=== PATIENT | female | born 1940 | race Caucasian/White ===

== ENCOUNTER 2020-05-03 14:43 | Emergency (ER) | payer MEDICARE, SELFPAY ==
[2020-05-03 14:48] VITALS: BP 245/105; PULSE 77; RESP 15; TEMP 36.3; O2SAT 96; BMI 20.3
[2020-05-03 14:52] VITALS: PULSE 74; O2SAT 99
[2020-05-03 14:53] VITALS: BP 245/105; PULSE 76; O2SAT 98
--- NOTE | 2020-05-03 14:58 | DI.RAD.S_ITS ---
PROCEDURE: XR SHOULDER RT MIN 2V INDICATIONS: Postreduction of dislocation TECHNIQUE: 3 views of the shoulder were acquired. COMPARISON: None. FINDINGS: Bones: There is a Hill-Sachs deformity of the humeral head. Mild irregularity in the inferior glenoid. No suspicious bony lesions. Visualized ribs appear intact. Soft tissues: No suspicious soft tissue calcifications. IMPRESSION: 1. Left shoulder dislocation is reduced. 2. A Hill-Sachs deformity of the humeral head. 3. Inferior glenoid irregularity, suggesting labral injury of uncertain chronicity. Dictated by: Jus Yi M.D. on 05/03/2020 at 15:26 Approved by: Jus Yi M.D. on 05/03/2020 at 15:28
[2020-05-03 14:59] VITALS: BP 213/94; PULSE 78; O2SAT 98
[2020-05-03 15:00] VITALS: PULSE 79; O2SAT 98
--- NOTE | 2020-05-03 15:00 | ED.FALL ---
HPI - Fall General Chief Complaint: Fall Stated Complaint: fall yesterday, right arm pain,Chiro wont touch it Time Seen by Provider: 05/03/20 14:54 Source: patient Mode of arrival: Ambulatory Limitations: no limitations History of Present Illness HPI Narrative: Patient is an 79-year-old female who states that yesterday she was out doing some gardening when she tripped over a flower pot landing on her right shoulder. She did not hit her head. There was no loss of consciousness. She has had pain in her right arm since that time. She denies any elbow or wrist tenderness. No neck pain. Has not tried anything for symptoms prior to arrival. Related Data Allergies Allergy/AdvReac Type Severity Reaction Status Date / Time No Known Drug Allergies Allergy Verified 05/03/20 14:51 Review of Systems Constitutional Constitutional: Denies fever(s) and Denies headache(s) ENT Ears, Nose, Mouth, and Throat: Denies headache(s) Cardiovascular Cardiovascular: Denies chest pain and Denies dyspnea Respiratory Respiratory: Denies dyspnea Gastrointestinal Gastrointestinal: Denies abdominal pain, Denies nausea and Denies vomiting Musculoskeletal Musculoskeletal: Denies tingling Comments: Right shoulder pain Integumentary/Breasts Skin/Breast: Denies rash Neurologic Neurologic: Denies behavioral changes, Denies headache(s) and Denies tingling Psychiatric Psychiatric: Denies behavioral changes Hematologic/Lymphatic On Anticoagulants: No Allergic/Immunologic Allergic/Immunologic: Denies urticaria Patient History Surgical History No pertinent past surgical history Social History Smoking Status: Unknown if ever smoked Smoking Status: Unknown if ever smoked alcohol intake frequency: holidays/special occasions only Substance Use Type: does not use Exam Initial Vital Signs Initial Vital Signs: Vital Signs Temperature 97.4 F L 05/03/20 14:48 Pulse Rate 77 05/03/20 14:48 Respiratory Rate 15 05/03/20 14:48 Blood Pressure 245/105 H 05/03/20 14:48 Pulse Oximetry 96 05/03/20 14:48 Const General: cooperative and comfortable Limitations: mental status not altered HENMT Head: normal to inspection and normocephalic Resp Effort & Inspection: normal respiratory effort Cardio Rate: regular rate Pulses: radial pulses present on the right Skin Lesions: no lesions Rashes: no rashes Neuro General: patient alert and patient awake Speech: speech normal Extrem Other: Right wrist and right elbow is unremarkable. Patient unable to touch her left shoulder with her right hand. The does appear to be a abnormality to the right shoulder. No fevers. Psych Appearance: grossly normal and well kempt Procedures Orthopedic Joint Reduction Joint #1: Time Out Performed: Yes Side: right Joint Reduction Location: shoulder Analgesia: none Shoulder Technique Used (if applicable): Milch Post-reduction neuro exam: no change Post-reduction vascular: no change Post Reduction X-Ray Obtained: Yes Splint Applied: Yes (Sling) Patient Tolerated Procedure: Well and No complications Orthopedic Splinting/Casting Injury #1: Side: right Upper Extremity Injury Location: shoulder Upper Extremity Immobilizer: sling/shoulder immobilizer Post splinting neuro exam: intact Post splinting vascular exam: intact Placed by: Nursing Course Orders Ordered: ED Orders 05/03/20 14:58 XR shoulder RT min 2V Stat Vital Signs Vital signs: Vital Signs - 8 hr 05/03/20 14:48 05/03/20 14:52 05/03/20 14:53 Temperature 97.4 F L Pulse Rate 77 74 76 Respiratory Rate 15 Blood Pressure 245/105 H 245/105 H Pulse Oximetry 96 99 98 05/03/20 14:59 05/03/20 15:00 Temperature Pulse Rate 78 79 Respiratory Rate Blood Pressure 213/94 H Pulse Oximetry 98 98 MDM - Fall Imaging Data Extremity x-ray #1: Radiologist's Impression: [address] [id number] ReportSigned Patient: Iesha Doan [facility]#: [id number]: [id number]:[id number]/Sex: 79 / FDate of Service: 05/03/20Loc: EDAccession Number: [id number] Procedure: XR shoulder RT min 2V Ordering Provider: David Jolley D.O. PROCEDURE: XR SHOULDER RT MIN 2V INDICATIONS: Postreduction of dislocation TECHNIQUE: 3 views of the shoulder were acquired. COMPARISON: None. FINDINGS: Bones: There is a Hill-Sachs deformity of the humeral head. Mild irregularity in the inferior glenoid. No suspicious bony lesions. Visualized ribs appear intact. Soft tissues: No suspicious soft tissue calcifications. IMPRESSION: 1. Left shoulder dislocation is reduced. 2. A Hill-Sachs deformity of the humeral head. 3. Inferior glenoid irregularity, suggesting labral injury of uncertain chronicity. Dictated by: Jus Yi M.D. on 05/03/2020 at 15:26 Approved by: Jus Yi M.D. on 05/03/2020 at 15:28 [facility] Narrative Medical decision making narrative: Patient arrived at the physical exam that is consistent with a right shoulder dislocation. It was replaced fairly easily here in the ER. The x-ray shows a reduction of the dislocation. I discussed with her her injuries and things that she needs to do afterwards to include physical therapy in the use of the sling. She was given return precautions and follow-up instructions. She expressed understanding and agreement. Discharge Plan Departure Patient Disposition: Home Clinical Impression: Anterior shoulder dislocation Instructions: How to Use a Sling, DI for Shoulder Dislocation Activity Restrictions/Additional Instructions: Your shoulder was successfully reduced here in the ER. The most important part in the rehab from a shoulder dislocation is physical therapy. I recommend that you contact the [facility] group at [phone] for follow-up. You can also contact the health human resources office manager here at the hospital at [phone] to help establish a primary provider. Return to the emergency department for any new or worsening symptoms
--- NOTE | 2020-05-03 15:05 | PC.NURSE ---
successful reduction by Dr bae of right shoulder. Patient tolerated well.
== END 2020-05-03 16:00 | disposition home or self-care (01) ==
PROVIDERS: Emergency Provider Emergency Medicine
DX: S43.004A Unspecified dislocation of right shoulder joint, initial encounter (principal); W19.XXXA Unspecified fall, initial encounter
CPT/HCPCS: 23650; 73030; 99281; 99284